=== PATIENT | male | born 1965 | race Caucasian/White ===

== ENCOUNTER → 2016-05-21 | Day surgery (SDC) | payer OTHER ==
[~2016-05-21] VITALS: Ht 172.7 cm; Wt 85.8 kg
[~2016-05-21] MED LIST: DEPO-TESTO200 MG/1 M IM; LEVAQUIN750 MG PO; PERCOCET 10/321 EACH PO
== END | disposition home or self-care (01) ==
LOC: FAS 07:56
DX: K81.1 Chronic cholecystitis (principal); K42.0 Umbilical hernia with obstruction, without gangrene; K21.9 Gastro-esophageal reflux disease without esophagitis; J43.9 Emphysema, unspecified; G47.30 Sleep apnea, unspecified; Z90.89 Acquired absence of other organs; Z04.9 Encounter for examination and observation for unspecified reason; Z98.890 Other specified postprocedural states; Z87.891 Personal history of nicotine dependence; Z79.899 Other long term (current) drug therapy
CPT/HCPCS: 74300; 88304; J1100; J1170; J1885; J2405; J2704; J2710; J3010; Q9962